=== PATIENT | male | born 1960 | race Asian ===

== ENCOUNTER 2018-03-15 08:08 | Emergency (ER) | payer OTHER ==
[2018-03-15] MEDS: ONDANSETRON 4 MG INJ IV (08:30)
[2018-03-15] MEDS: ACETAMINOPHEN 325 MG TAB PO (08:30)
[2018-03-15] MEDS: SOD CHLORIDE 0.9% 1,000 ML IV ×2 (08:31)
[2018-03-15] MEDS: morphine 4 MG/ML VIAL IV (08:38)
[2018-03-15 08:39] LABS: ADD MAN DIFF? NO
[2018-03-15] MEDS: CEFTRIAXONE 1 GM/50 ML (PMX) 50 ML IVPB (08:40)
[2018-03-15 08:46] LABS: BASOPHILS % 0.1 % (0.0-2.0); EOSINOPHILS % 0.1 % (0.0-7.0); HEMATOCRIT 46.2 % (42.0-52.0); HEMOGLOBIN 14.8 g/dl (14.0-18.0); LYMPHOCYTES # 1.1 10^3/ul (0.8-2.9); LYMPHOCYTES % 7.3 % (15.0-51.0); MEAN CORPUSCULAR HEMOGLOBIN 26.6 pg (29.0-33.0); MEAN CORPUSCULAR VOLUME 82.9 fl (82.0-101.0); MEAN PLATELET VOLUME 9.5 fl (7.4-10.4); MONOCYTE # 1.3 10^3/ul (0.3-0.9); MONOCYTES % 8.7 % (0.0-11.0); NEUTROPHIL # 12.6 10^3/ul (1.6-7.5); NEUTROPHILS % 82.8 % (39.0-77.0); PLATELET COUNT 305 10^3/UL (140-415); RED BLOOD COUNT 5.57 10^6/ul (4.70-6.10); RED CELL DISTRIBUTION WIDTH 13.9 % (11.5-14.5)
[2018-03-15 08:46] LABS: WHITE BLOOD COUNT 15.2 10^3/ul (4.8-10.8)
[2018-03-15 09:01] LABS: LACTIC ACID 1.1 mmol/L (0.5-2.0)
[2018-03-15 09:01] LABS: ALANINE AMINOTRANSFERASE 26 IU/L (13-69); ALBUMIN 4.1 g/dl (3.3-4.9); ALBUMIN/GLOBULIN RATIO 1.13; ALKALINE PHOSPHATASE 86 IU/L (42-121); ANION GAP 16 (8-16); ASPARTATE AMINO TRANSFERASE 16 IU/L (15-46); BILIRUBIN,INDIRECT 1.4 mg/dl (0-1.1); BILIRUBIN,TOTAL 1.4 mg/dl (0.2-1.3); BLOOD UREA NITROGEN 23 mg/dl (7-20); CALCIUM 9.1 mg/dl (8.4-10.2); CARBON DIOXIDE 26 mmol/L (21-31); CHLORIDE 101 mmol/L (97-110); CREATININE 1.98 mg/dl (0.61-1.24); GLUCOSE 159 mg/dl (70-220); POTASSIUM 4.1 mmol/L (3.5-5.1); SODIUM 139 mmol/L (135-144); TOTAL PROTEIN 7.7 g/dl (6.1-8.1)
[2018-03-15 09:08] LABS: PROTIME 13.3 Sec (11.9-14.9)
[2018-03-15 09:09] LABS: PARTIAL THROMBOPLASTIN TIME 35.3 Sec (25.0-35.0)
[2018-03-15 09:12] LABS: TROPONIN-I < 0.010 ng/ml (0.000-0.120)
[2018-03-15 10:56] LABS: ADD UMIC NO; UR ASCORBIC ACID NEGATIVE (NEGATIVE); UR BILIRUBIN (Dip) NEGATIVE (NEGATIVE); UR BLOOD (Dip) NEGATIVE (NEGATIVE); UR CLARITY CLEAR (CLEAR); UR COLOR YELLOW (YELLOW); UR GLUCOSE (Dip) NEGATIVE (NEGATIVE); UR KETONES (Dip) NEGATIVE (NEGATIVE); UR LEUKOCYTE ESTERASE (Dip) NEGATIVE Leu/ul (NEGATIVE); UR NITRITE (Dip) NEGATIVE (NEGATIVE); UR SPECIFIC GRAVITY (Dip) 1.006 (1.003-1.030); UR TOTAL PROTEIN (Dip) NEGATIVE (NEGATIVE); UR UROBILINOGEN (Dip) NEGATIVE (NEGATIVE)
[2018-03-15 12:13] LABS: CREATINE KINASE < 20 IU/L (23-200)
[2018-03-15] MEDS: HYDROCODONE/APAP (10/325) TAB PO (13:44)
[2018-03-15] MEDS: KETOROLAC 30 MG INJ IM (13:44)
== END 2018-03-15 14:40 | disposition home or self-care (01) ==
LOC: E/R 08:08
DX: D72.829 Elevated white blood cell count, unspecified (principal); R40.2142 Coma scale, eyes open, spontaneous, at arrival to emergency department; R40.2362 Coma scale, best motor response, obeys commands, at arrival to emergency department; R06.02 Shortness of breath
CPT/HCPCS: 36415; 71045; 80053; 81003; 82550; 83605; 84484; 85025; 85610; 85730; 87040; 93005; 96372; 96374; 96375; 99285-25